=== PATIENT | female | born 1965 | race Caucasian/White ===

== ENCOUNTER → 2019-10-18 09:17 | Outpatient (CLI) | payer OTHER, SELFPAY ==
--- NOTE | ~2019-10-18 | MMUS_ITS ---
EXAMINATION: MM screening aniket BI w yudy, US breast LT limited HISTORY: Palpable left breast lump TECHNIQUE: Craniocaudal and mediolateral oblique 3-D tomosynthesis images were obtained and synthetic 2-D images were generated. CAD analysis was submitted and interpreted. High-resolution Limited left breast ultrasound. COMPARISON: Comparison to multiple prior studies sequentially, with oldest reviewed study dated 11/15. BREAST PARENCHYMAL COMPOSITION: The breasts are heterogenously dense, which may obscure small masses. FINDINGS: There is no evidence of suspicious mass, calcification, or architectural distortion to sugg est malignancy in either breast. There has been no suspicious interval change. Left breast ultrasound: At 9:00, 5.5 cm from the nipple there is a complicated cyst measuring 6 mm maximum dimension. No susp icious masses to suggest malignancy. IMPRESSION: 1. No mammographic or sonographic evidence of malignancy. 2. Recommend routine screening mammography in one year. BI-RADS Category 2: Benign finding(s). Reviewed, dictated and finalized at location A. IMPRESSION: 1. No mammographic or sonographic evidence of malignancy. 2. Recommend routine screening mammography in one year. BI-RADS Category 2: Benign finding(s).
== END ==
PROVIDERS: Visit Provider Obstetrics & Gynecology
DX: Z12.31 Encounter for screening mammogram for malignant neoplasm of breast (principal); N63.20 Unspecified lump in the left breast, unspecified quadrant
CPT/HCPCS: 76642; 77063; 77067

== ENCOUNTER → 2021-10-20 11:30 | Outpatient (CLI) | payer OTHER, SELFPAY ==
--- NOTE | ~2021-10-20 | MM_ITS ---
EXAMINATION: MM screening aniket BI w yduy HISTORY: Screening mammogram TECHNIQUE: Craniocaudal and mediolateral oblique 3-D tomosynthesis images were obtained and synthetic 2-D images were generated. CAD analysis was submitted and interpreted. COMPARISON: 10/18/2019 bilateral screening mammogram and limited left breast ultrasound 05/24/2018, 02/18/2015 bilateral screening mammogram examinations BREAST PARENCHYMAL COMPOSITION: The breasts are heterogeneously dense, which may obscure small masses . FINDINGS: There is no evidence of suspicious mass, calcification, or architectural distortion to sugg est malignancy in either breast. There has been no suspicious interval change. IMPRESSION: 1. No mammographic evidence of malignancy. 2. Recommend routine screening mammography in one year. BI-RADS Category 1: Negative Reviewed, dictated and finalized at location A.
== END ==
PROVIDERS: PCP Family Medicine; Visit Provider Obstetrics & Gynecology Gynecology
DX: Z12.31 Encounter for screening mammogram for malignant neoplasm of breast (principal)
CPT/HCPCS: 77063; 77067

== ENCOUNTER 2022-12-07 14:42 | Outpatient (CLI) | payer BC, SELFPAY ==
--- NOTE | ~2022-12-07 | DEXA_ITS ---
Bone Density Report Name: OVIDIO COELHO Age: 57 Sex: Female Ethnicity: White Date of : 1965 Indication: postmenopausal; screening for osteoporosis; height loss; prior fracture; Referring Provider: CAROL HARRISON Study: Bone densitometry was performed. Exam Date: December 07, 2022 Accession number: [id number] Bone Density: Region BMD T-score Z-score Classification AP Spine(L1-L4) 0.736 -2.8 -1.7 Osteoporosis Femoral Neck (Left) 0.762 -0.8 0.3 Normal Total Hip (Left) 0.920 -0.2 0.6 Normal Femoral Neck (Right) 0.651 -1.8 -0.7 Osteopenia Total Hip (Right) 0.955 0.1 0.8 Normal Total Hip Mean 0.938 -0.1 0.7 Normal World Health Organization criteria for BMD impression classify patients as: Normal (T-score at or above -1.0), Osteopenia (T-score between -1.0 and -2.5), or Osteoporosis (T-score at or below -2.5). 10-year Fracture Risk: FRAX not reported because: Some T-score for Spine Total or Hip Total or Femoral Neck at or below -2.5 Clinical Information Provided by Patient: Has had a low trauma fracture Has used the following medications: Vitamin D Patient maximum height was 64 Menopause Age: 55 No regular weight bearing exercise Drinks caffeinated beverages Onset of menses at age 14 Number of children 5 Impression: The patient has established osteoporosis, based on the Total Spine T-score and the existence of a prior fracture. The patient has risk factors, including: previous fracture. Discussion: HIGH RISK OF FRACTURE. BONE DENSITY IS UNDESIRABLY LOW AT ONE OR MORE SKELETAL SITES, CONSISTENT WITH POSTMENOPAUSAL OSTEOPOROSIS. This patient's lowest T-score, in a patient who has previously fractured, meets the World Health Organization's (WHO) criteria for severe osteoporosis. In untreated patients, the risk of osteoporotic fracture increases approximately two-fold for each 1.0 SD decrease in T-score. Low bone density is not the only risk factor for fracture; also consider factors such as patient's age, frailty or poor health, risk of falling, risk of injury, previous osteoporotic fracture, family history of osteoporosis, cigarette smoking, low body weight, etc. Not everyone with low bone mineral density has osteoporosis; osteomalacia and other metabolic bone disorders should also be considered. Patients who have osteoporosis should be evaluated for specific diseases and conditions (secondary causes) that may cause or contribute to bone loss. The [place] [employer]ocr[employer] (AACE) and National Osteoporosis Foundation (NOF) recommend pharmacologic intervention for all postmenopausal women whose T-score is in this range. The patient should follow a healthful lifestyle (good nutrition with adequate calcium and vitamin D, and appropriate weight-bearing exercise). Fol
--- NOTE | ~2022-12-07 | MM_ITS ---
EXAMINATION: MM screening aniket BI w yudy HISTORY: Screening mammogram TECHNIQUE: Craniocaudal and mediolateral oblique 3-D tomosynthesis images were obtained and synthetic 2-D images were generated. CAD analysis was submitted and interpreted. COMPARISON: 10/20/2021 bilateral screening mammogram 10/18/2019 bilateral screening mammogram, Limited left breast ultrasound BREAST PARENCHYMAL COMPOSITION: The breasts are heterogeneously dense, which may obscure small masses . FINDINGS: Right breast: Possible right breast masses are suggested. Diagnostic right mammogram is recommended, with ultrasound if required. Left breast: There is no evidence of suspicious mass, calcification, or architectural distortion to s uggest malignancy in the left breast. There has been no suspicious interval change. IMPRESSION: 1. Possible right breast masses 2. Diagnostic right mammogram is recommended, with ultrasound if required BI-RADS Category 0: Incomplete: Needs additional imaging evaluation. Reviewed, dictated and finalized at location A.
== END 2022-12-07 14:43 | disposition home or self-care (01) ==
PROVIDERS: PCP Family Medicine; Visit Provider Obstetrics & Gynecology Gynecology
DX: Z12.31 Encounter for screening mammogram for malignant neoplasm of breast (principal); R92.8 Other abnormal and inconclusive findings on diagnostic imaging of breast; M81.0 Age-related osteoporosis without current pathological fracture; Z78.0 Asymptomatic menopausal state
CPT/HCPCS: 77063; 77067; 77080

== ENCOUNTER → 2022-12-29 07:43 | Outpatient (CLI) | payer BC, SELFPAY ==
--- NOTE | ~2022-12-29 | MMUS_ITS ---
EXAMINATION: MM diagnostic aniket RT w yudy, US breast RT limited HISTORY: Possible right breast masses on screening mammogram TECHNIQUE: Additional 3-D tomosynthesis images of the right breast were performed and synthetic 2-D i mages were generated. CAD analysis was submitted and interpreted. High resolution limited right breas t ultrasound was performed. COMPARISON: 12/07/2022, 10/20/2021, 11/04/2019, 05/24/2018 FINDINGS: MAMMOGRAPHIC FINDINGS: No definite mass is identified with spot compression views of the right breast. No suspicious calcifi cation or architectural distortion are seen. ULTRASOUND: There is a 3 mm round, circumscribed, hypoechoic mass with no posterior features or internal vascular ity at the 9:00 location, 8 m from the nipple. There is a questionable 8 mm hyperechoic mass at the 9 :00 location, 5 cm from the nipple with no posterior features or internal vascularity. IMPRESSION: 1. Probably benign sonographically detected findings of the right breast as described above. 2. Recommend 6 month follow-up right breast ultrasound. BI-RADS category 3, probably benign findings. Reviewed, dictated and finalized at location A. DUMPER IMPRESSION: 1. Probably benign sonographically detected findings of the right breast as navin cribed above. 2. Recommend 6 month follow-up right breast ultrasound. BI-RADS category 3, probably benign findings.
== END ==
PROVIDERS: PCP Obstetrics & Gynecology Gynecology; Visit Provider Obstetrics & Gynecology Gynecology
DX: R92.8 Other abnormal and inconclusive findings on diagnostic imaging of breast (principal)
CPT/HCPCS: 76642; 77061; 77065; G0279

== ENCOUNTER 2023-07-04 08:24 | Outpatient (CLI) | payer BC, SELFPAY ==
--- NOTE | ~2023-07-04 | MMUS_ITS ---
EXAMINATION: US breast RT limited, MM diagnostic aniket RT w yudy HISTORY: Follow-up right breast asymmetries TECHNIQUE: Additional 3-D tomosynthesis images of the right breast were performed and synthetic 2-D i mages were generated. CAD analysis was submitted and interpreted. High resolution Limited right breas t ultrasound was performed. COMPARISON: Comparison to multiple prior studies sequentially, with oldest reviewed study dated 06/2015. BREAST PARENCHYMAL COMPOSITION: Dense: The breasts are heterogeneously dense, which may obscure small masses FINDINGS: MAMMOGRAPHIC FINDINGS: Not dense: There are scattered areas of fibroglandular density. There are no suspicious masses, calci fications or architectural distortion in the right breast to suggest malignancy. ULTRASOUND: Limited right breast ultrasound: At 9:00, 5 cm from the nipple there is an oval heterogeneous hypoech oic mass measuring 9 mm with posterior shadowing. No internal vascularity. Also at 9:00, 8 cm from th e nipple there is a slightly irregular shaped 4 mm mass with posterior shadowing. Minimal peripheral vascularity. IMPRESSION: 1. Abnormal right breast masses located at 9:00, 5 cm from the nipple and 9:00, 8 cm from the nipple. 2. Ultrasound-guided right breast biopsies recommended. BI-RADS category 4, suspicious findings. Reviewed, dictated and finalized at location A. IMPRESSION: 1. Abnormal right breast masses located at 9:00, 5 cm from the nipple and 9:00, 8 cm from the nipple. 2. Ultrasound-guided right breast biopsies recommended. BI-RADS category 4, suspicious findings.
== END 2023-07-04 08:25 ==
LOC: MICIMG 08:25
PROVIDERS: PCP Family Medicine; Visit Provider Nurse Practitioner
DX: R92.8 Other abnormal and inconclusive findings on diagnostic imaging of breast (principal)
CPT/HCPCS: 76642; 77061; 77065; G0279